=== PATIENT | male | born 1955 | race Asian ===

== ENCOUNTER 2016-06-23 09:03 | Observation (INO) | payer MEDICAID, OTHER ==
[2016-06-23] MEDS ORDERED: ASPIRIN CHEW 81 MG TABLET PO STA (09:13)
[2016-06-23] MEDS ORDERED: ASPIRIN CHEW 81 MG TABLET ONE (09:15)
[2016-06-23] MEDS ORDERED: MORPHINE 2 MG/ML SYRINGE IVP STA (11:39)
[2016-06-23] MEDS ORDERED: ONDANSETRON 4 MG/2 ML VIAL IVP STA (11:39)
[2016-06-23] MEDS ORDERED: NITROGLYCERIN SL 0.4 MG TABLET SL STA (11:44)
[2016-06-23] MEDS ORDERED: ONDANSETRON 4 MG/2 ML VIAL ONE (11:45)
[2016-06-23] MEDS ORDERED: MORPHINE 2 MG/ML SYRINGE ONE (11:45)
[2016-06-23] MEDS ORDERED: NITROGLYCERIN SL 0.4 MG TABLET SL ONE (11:45)
[2016-06-23] MEDS ORDERED: IOPAMIDOL-300 100 ML VIAL IVP ONE (12:51)
[2016-06-23] MEDS ORDERED: METOPROLOL 5 MG/5 ML VIAL IVP STA (13:44)
[2016-06-23] MEDS ORDERED: MORPHINE 2 MG/ML SYRINGE IVP PRN (13:59)
[2016-06-23] MEDS ORDERED: SODIUM CHLORIDE FLUSH 0.9% 10 ML SYRINGE IVP PRN (13:59)
[2016-06-23] MEDS ORDERED: SODIUM CHLORIDE FLUSH 0.9% 10 ML SYRINGE IVP SCH (14:00)
[2016-06-23] MEDS: NITROGLYCERIN SL 0.4 MG TABLET SL PRN ×3 (15:13→15:40)
[2016-06-23] MEDS ORDERED: DEXTROSE 50% ABBOJECT 25 GM/50 ML SYRINGE IVP PRN (16:06)
[2016-06-23] MEDS ORDERED: GLUCAGON 1 MG/ML VIAL SUBQ PRN (16:06)
[2016-06-23] MEDS ORDERED: DEXTROSE GEL 37.5 GM TUBE PO PRN (16:06)
[2016-06-23] MEDS ORDERED: DEXTROSE 5% 1,000 ML IV PRN (16:06)
[2016-06-23] MEDS ORDERED: INSULIN ASPART 300 UNIT/3 ML PEN SUBQ SCH (17:00)
[2016-06-23] MEDS ORDERED: ATORVASTATIN 40 MG TABLET PO SCH (21:00)
[2016-06-24] MEDS ORDERED: ASPIRIN CHEW 81 MG TABLET PO SCH (08:00)
[2016-06-24] MEDS ORDERED: POLYETHYLENE GLYCOL 3350 17 GM PACKET PO SCH (09:00)
[2016-06-24] MEDS ORDERED: FELODIPINE ER 2.5 MG TABLET PO SCH (09:00)
[2016-06-24] MEDS ORDERED: LOSARTAN 50 MG TABLET PO SCH (09:00)
[2016-06-24] MEDS ORDERED: FAMOTIDINE 20 MG TABLET PO SCH (09:00)
[2016-06-25] MEDS ORDERED: metFORMIN 500 MG TABLET PO SCH (17:00)
== END 2016-06-23 21:00 | disposition home or self-care (01) ==
DX: R07.89 Other chest pain (principal); K21.9 Gastro-esophageal reflux disease without esophagitis; M94.0 Chondrocostal junction syndrome [Tietze]; E11.9 Type 2 diabetes mellitus without complications; F17.210 Nicotine dependence, cigarettes, uncomplicated; E78.5 Hyperlipidemia, unspecified; I10 Essential (primary) hypertension; Z79.84 Long term (current) use of oral hypoglycemic drugs; Z82.49 Family history of ischemic heart disease and other diseases of the circulatory system
CPT/HCPCS: 36415; 71020; 71275; 80048; 80053; 83036; 83690; 84484; 85025; 93005; 93010; 93306; 96374; 96375; 99284; A9270; G0378; Q9967

== ENCOUNTER 2018-11-23 07:59 | Outpatient (CLI) | payer OTHER, BC | END 2018-11-23 08:00 | disposition critical access hospital (66) | LOC: EMS 07:59 | PROVIDERS: ATTEND Surgery | DX: S09.90XA Unspecified injury of head, initial encounter (principal); R42 Dizziness and giddiness; W18.30XA Fall on same level, unspecified, initial encounter; Y93.E9 Activity, other interior property and clothing maintenance; Y92.212 Middle school as the place of occurrence of the external cause; Y99.0 Civilian activity done for income or pay | CPT/HCPCS: A0425; A0429 ==

== ENCOUNTER 2018-11-23 08:19 | Emergency (ER) | payer OTHER, BC ==
--- NOTE | 2018-11-23 08:32 | ED Physician Documentation ---
PD HPI Fall - Stated complaint Stated Complaint: GLF - Chief complaint Chief Complaint: Trauma Hd/Nk - History obtained from History obtained from: Patient, EMS - History of Present Illness Mechanism of injury: Slipped Fall distance: Standing position Where injury occurred: Work Timing - onset: How many hours ago (1) Injury(ies) location: Head Associated symptoms: No: LOC, Neck pain, Nausea / vomiting Worsens with: Palpation Similar symptoms before: Has not had sx before - Additional information Additional information: The patient is a 63-year-old male who slipped on a wet floor while at work 1 hour prior to arrival. He hit his head on the floor and presents now via ambulance with occipital headache. He denies loss of consciousness. He denies nausea or weakness. He has no history of similar symptoms in the past. Review of Systems Constitutional: denies: Fever Eyes: denies: Decreased vision Ears: denies: Tinnitus/ringing Nose: denies: Congestion Throat: denies: Sore throat Cardiac: denies: Chest pain / pressure Respiratory: denies: Dyspnea, Cough GI: denies: Abdominal Pain, Nausea, Vomiting : denies: Incontinent Skin: denies: Abrasion (s), Laceration (s) Musculoskeletal: denies: Neck pain, Back pain, Extremity pain Neurologic: reports: Headache, Head injury. denies: Focal weakness, Numbness, LOC PD PAST MEDICAL HISTORY - Past Medical History Cardiovascular: Hypertension, High cholesterol Endocrine/Autoimmune: Type 2 diabetes GI: GERD Psych: None - Past Surgical History Past Surgical History: No - Present Medications Home Medications: Ambulatory Orders Medication Instructions Recorded Confirmed Felodipine [Felodipine ER] 10 mg PO DAILY 12/18/14 06/23/16 Losartan Potassium 100 mg PO DAILY 12/18/14 06/23/16 Metformin HCl 500 mg PO BID 12/18/14 06/23/16 Omeprazole 40 mg PO DAILY 12/18/14 06/23/16 Aspirin Chewable [St Jefe 81 mg PO DAILYWM tablet 06/23/16 Aspirin] Nitroglycerin [Nitrostat] 0.4 mg SL Q5MIN PRN #30 tablet 06/23/16 Rosuvastatin Calcium [Crestor] 5 mg PO DAILY 06/23/16 06/23/16 - Allergies Allergies/Adverse Reactions: Allergies Allergy/AdvReac Type Severity Reaction Status Date / Time hydrochlorothiazide AdvReac Respiratory Verified 01/03/16 00:25 lisinopril AdvReac Respiratory Verified 01/03/16 00:25 - Social History Does the pt smoke?: Yes Smoking Status: Current every day smoker Does the pt drink ETOH?: No Does the pt have substance abuse?: No - Immunizations Immunizations are current?: No - POLST Patient has POLST: No PD ED PE NORMAL - Vitals Vital signs reviewed: Yes (hypertensive) - General General: Alert and oriented X 3, Well developed/nourished - HEENT HEENT: PERRL, EOMI, Ears normal, Pharynx benign, Other (There is a 4 cm diameter occipital scalp hematoma. There is no break in the integument. No bony step- off is palpated.) - Neck Neck: No bony TTP, Other (Full cervical range of motion without tenderness.) - Cardiac Cardiac: RRR - Respiratory Respiratory: No respiratory distress, Clear bilaterally - Abdomen Abdomen: Soft, Non tender - Back Back: No spinal TTP - Derm Derm: No rash - Extremities Extremities: No tenderness to palpate, Normal ROM s pain - Neuro Neuro: Alert and oriented X 3, No motor deficit, No sensory deficit, Normal speech Eye Opening: Spontaneous Motor: Obeys Commands Verbal: Oriented GCS Score: 15 Results - Vitals Vitals: Vital Signs - 24 hr 11/23/18 11/23/18 08:25 10:27 Temperature 36.7 C 36.6 C Heart Rate 90 75 Respiratory 15 16 Rate Blood Pressure 152/95 H 132/91 H O2 Saturation 98 98 Oxygen O2 Source Room air - Rads (name of study) Head CT Radiology: Prelim report reviewed, EMP read contemporaneously, See rad report (Scalp hematoma with no intracranial abnormality detected.) PD MEDICAL DECISION MAKING - ED course Complexity details: reviewed results, re-evaluated patient, considered differential, d/w patient, other (An L&I form was completed.) ED course: The patient's presentation is most consistent with slip and fall with occipital scalp hematoma. Head CT reveals no evidence of intracranial abnormality. The patient has no evidence of cervical spine injury or other traumatic injuries on physical examination. Treatment in the emergency department included administration of ibuprofen 800 mg orally. I discussed with him the expected course of injury, symptomatic treatment and outpatient follow-up, as well as potentially worrisome signs or symptoms that should prompt reevaluation in the emergency department. Departure - Departure Disposition: 01 Home, Self Care Clinical Impression: Fall Qualifiers: Encounter type: initial encounter Qualified Code(s): W19.XXXA - Unspecified fall, initial encounter Scalp hematoma Qualifiers: Encounter type: initial encounter Qualified Code(s): S00.03XA - Contusion of scalp, initial encounter Condition: Stable Health Concerns: Head injury. Plan of Treatment: Symptomatic treatment: Ibuprophen. ice pack. Care Goals: Pain relief. Assessment: see above. Instructions: ED Hematoma Follow-Up: Padmini Friedman MD [Primary Care Provider] - Comments: Apply ice pack to your injured area intermittently for the next 3 days. You can use ibuprofen, up to 800 mg 3 times daily for its anti-inflammatory effect. Follow-up with your primary physician within 1 to 2 weeks if not completely resolved. Return to the emergency department if you develop increasing headache, persistent vomiting, or otherwise worsening symptoms. Forms: Activity restrictions Discharge Date/Time: 11/23/18 11:13
[2018-11-23] MEDS ORDERED: IBUPROFEN 800 MG TABLET PO STA (10:46)
[2018-11-23 10:52] VITALS: BP 132/91
--- NOTE | 2018-11-23 10:52 | CT Report ---
Reason: Fell, with head injury; occipital scalp hematoma. Procedure Date: 11/23/2018 Accession Number: [id number] / [id number] Procedure: CT - HEAD WO CPT Code: FULL RESULT: EXAM: CT HEAD EXAM DATE: 11/23/2018 09:41 AM. CLINICAL HISTORY: Fell, head injury - occipital scalp hematoma. COMPARISON: None. TECHNIQUE: Multiaxial CT images were obtained from the foramen magnum to the vertex. Reformats: Sagittal and coronal. IV contrast: None. In accordance with CT protocol optimization, one or more of the following dose reduction techniques were utilized for this exam: automated exposure control, adjustment of mA and/or KV based on patient size, or use of iterative reconstructive technique. FINDINGS: Parenchyma: No intraparenchymal hemorrhage. No evidence of mass, midline shift. Taylor-white differentiation is distinct. Extraaxial Spaces: Basal cisterns are preserved. No subdural or epidural collections identified. Ventricles: Normal in size and position. Sinuses and Orbits: Imaged paranasal sinuses, orbits, and mastoids show no significant abnormality. Bones: No evidence of fracture or calvarial defect. Other: Extracranial posterior soft tissue scalp thickening is compatible with provided history of scalp hematoma near the vertex. IMPRESSION: Scalp hematoma with no acute intracranial abnormality detected. [facility]
== END 2018-11-23 11:13 | disposition home or self-care (01) ==
LOC: EDUNIT# → ED 08:19
DX: S00.03XA Contusion of scalp, initial encounter (principal); W01.0XXA Fall on same level from slipping, tripping and stumbling without subsequent striking against object, initial encounter; Y93.E5 Activity, floor mopping and cleaning; Y99.0 Civilian activity done for income or pay; I10 Essential (primary) hypertension; E11.9 Type 2 diabetes mellitus without complications; Z79.84 Long term (current) use of oral hypoglycemic drugs; F17.200 Nicotine dependence, unspecified, uncomplicated
CPT/HCPCS: 70450; 99282; 99283; A9270

== ENCOUNTER 2019-08-28 14:47 | Outpatient (CLI) | payer OTHER | END 2019-08-28 14:48 | disposition home or self-care (01) | LOC: COV 14:47 | PROVIDERS: ATTEND Family Medicine | DX: R05 Cough (principal) | CPT/HCPCS: 81599 ==